=== PATIENT | female | born 1995 | race Caucasian/White ===

== ENCOUNTER 2023-06-27 13:04 | Emergency (ER) | payer SELFPAY ==
[2023-06-27] MEDS: Sodium Chloride 0.9% 10 ML Syringe FLUSH PRN (14:13)
[2023-06-27] MEDS: Sodium Chloride 0.9% 1,000 ML IV ONE (14:13)
[2023-06-27] MEDS: Sodium Chloride 0.9% 2.5 ML Syringe FLUSH PRN (14:15)
[2023-06-27 14:20] LABS: BASOPHILS ABSOLUTE AUTO 0.04 K/uL (0.00-0.20); BASOPHILS PERCENT AUTO 0.7 % (0.0-1.0); EOSINOPHILS ABSOLUTE AUTO 0.02 K/uL (0.00-0.45); EOSINOPHILS PERCENT AUTO 0.4 % (0.0-6.0); HEMATOCRIT 45.9 % (37.0-47.0); HEMOGLOBIN 15.3 g/dL (12.0-16.0); IMMATURE GRAN ABSOLUTE AUTO 0.01 K/uL (0.00-0.05); IMMATURE GRAN PERCENT AUTO 0.2 % (0.0-0.4); LYMPHOCYTES ABSOLUTE AUTO 1.22 K/uL (1.00-4.80); LYMPHOCYTES PERCENT AUTO 22.6 % (24.0-44.0); MEAN CORPUSCULAR HEMOGLOBIN 28.9 pg (28.0-32.0); MEAN CORPUSCULAR HGB CONC 33.3 g/dL (32.0-36.0); MEAN CORPUSCULAR VOLUME 86.8 fL (83.0-99.0); MEAN PLATELET VOLUME 8.7 fL (9.4-12.3); MONOCYTES ABSOLUTE AUTO 0.56 K/uL (0.00-0.80); MONOCYTES PERCENT AUTO 10.4 % (0.0-8.0); NEUTROPHILS ABSOLUTE AUTO 3.56 K/uL (1.80-7.70); NEUTROPHILS PERCENT AUTO 65.7 % (41.0-71.0); PLATELET COUNT,PLT 245 K/uL (150-400); RED BLOOD CELL COUNT 5.29 M/uL (4.10-5.30); WHITE BLOOD CELL COUNT,WBC 5.41 K/uL (3.9-11.3)
[2023-06-27 14:24] LABS: COLOR,URINE YELLOW; GLUCOSE,URINE NEGATIVE (NEGATIVE); KETONES,URINE TRACE mg/dL (NEGATIVE); LEUKOCYTE ESTERASE,URINE NEGATIVE (NEGATIVE); NITRITE,URINE POSITIVE (NEGATIVE); OCCULT BLOOD,URINE NEGATIVE (NEGATIVE); PH,URINE 5.5 (5.0-8.0); PROTEIN,URINE 30 mg/dL (NEGATIVE); UROBILINOGEN,URINE 0.2 EU/dL (<2.0)
[2023-06-27 14:37] LABS: APPEARANCE,URINE SLT CLOUDY; BILIRUBIN,URINE SMALL (NEGATIVE)
[2023-06-27 14:38] LABS: BACTERIA,URINE 2+ (NEGATIVE); EPITHELIAL CELLS,URINE MANY (NONE-FEW); MUCUS,URINE MANY (NONE-MOD); RBC,URINE 0-3 (0-2/HPF)
[2023-06-27 14:43] LABS: A/G RATIO 0.9 (0.9-1.6); ALBUMIN 3.8 g/dL (3.4-5.0); BILIRUBIN TOTAL 0.6 mg/dL (0.2-1.0); CALCIUM 9.3 mg/dL (8.5-10.1); CARBON DIOXIDE,CO2 23.9 mmol/L (21.0-32.0); EST CRCL DRUG DOSING (CG) 72.32 mL/min; POTASSIUM,K 4.1 mmol/L (3.5-5.1); PROTEIN TOTAL,TP 7.9 g/dL (6.4-8.2)
[2023-06-27] MEDS: cefTRIAXone 2 GM in Sodium Chloride 0.9% 50 ML IV STA (14:48)
[2023-06-27] MEDS: Sodium Chloride 0.9% 1,000 ML IV STA (14:50)
[2023-06-27] MEDS: Iopamidol 755 MG/ML 500 ML Multipack Bottle IVPUSH STA (16:04)
== END 2023-06-27 17:03 | disposition home or self-care (01) ==
LOC: MW.ED 13:04
DX: N30.01 Acute cystitis with hematuria (principal); R19.7 Diarrhea, unspecified; Z79.899 Other long term (current) drug therapy; Z88.7 Allergy status to serum and vaccine; Z91.018 Allergy to other foods; Z91.040 Latex allergy status
CPT/HCPCS: 36415; 74177; 80053; 81001; 81025; 83690; 85025; 96361; 96365; 99284; J0696; J3490; J7030; Q9967